=== PATIENT | female | born 1980 | race Two or more races ===

== ENCOUNTER 2024-09-12 10:47 | Outpatient (AMB) | payer MEDICAID, SELFPAY ==
[2024-09-12 11:18] VITALS: BP 108/70; PULSE 75; RESP 18; TEMP 36.2; O2SAT 99; BMI 34.9
--- NOTE | 2024-09-12 11:18 | OBCLNT_ITS ---
Vital Signs 09/12/24 11:18 Height 1.65 m Height Method Stated Weight 95.311 kg Weight Measurement Method Standing Scale BMI 34.9 BP 108/70 Blood Pressure Source Automatic Cuff Blood Pressure Location Left Upper Arm Position Sitting Respiration 18 Pulse 75 Pulse Source Monitor Temp 97.2 F Temp Source Oral Pulse Oximetry (%) 99 Oxygen Delivery Method Room Air Allergies/Home Meds Allergies & Medications Allergies No Known Allergies Allergy (Verified 09/12/24 11:20) Medication Reconciliation alprazolam 0.25 mg tablet (Xanax) 0.25 mg PO TID PRN anxiety #10 tabs 01/24/20 [Rx Confirmed 09/12/24] albuterol sulfate 90 mcg/actuation aerosol inhaler (Ventolin HFA) 2 puff inhalation Q6H PRN shortness of breath or wheezing #8.5 grams 01/26/22 [Rx Confirmed 09/12/24] Intake Visit Data Collection New Patient or Established: Established Patient (seen at [facility] within 3 years) Reason for Visit:: Transfer of care from [facility] at 31 weeks and 2 days estimated gestation Seen by Clinical Staff ONLY (RN/MA): No Director Child Development Center Required: No Do You Feel Safe at Home: Yes Authorities Contacted: N/A PCP or OBGYN visit in last 3 months: Yes Hx Now: Yes Are you currently on any form of Control: No Last menstrual period: 02/06/24 Pain Present Currently: No Pain Scale Used: Murray-Jett/Numerical Pain scale:: 0 Smoking Status Smoking Status: Never smoker Questionnaires Covid-19 Vaccine Questionnaire Has patient been vacinated for Covid-19 Have you been vacinated for Covid-19: No PHQ-9 PHQ-2 Over the last 2 weeks, how often have you been bothered by any of the following problems? 1. Little interest or pleasure in doing things: not at all 2. Feeling down, depressed, or hopeless: not at all Total score: 0 PHQ-9 3. Trouble falling or staying asleep, or sleeping too much: Not at all 4. Feeling tired or having little energy: Not at all 5. Poor appetite or overeating: Not at all 6. Feeling bad about yourself - or that you are a failure or have let yourself or your family down: Not at all 7. Trouble concentrating on things, such as reading the newspaper or watching television: Not at all 8. Moving or speaking so slowly that other people could have noticed? - Or the opposite - being so fidgety or restless that you have been moving around a lot more than usual: not at all 9. Thoughts that you would be better off or of hurting yourself in some way: Not at all Total score: 0 If you checked off any problems, how difficult have these problems made it for you to do your work, take care of things at home, or get along with other people?: not difficult at all Source: Developed by Drs. Zafar Faulkner, Mare Floyd, Santo Heck and colleagues, with an educational clark from [employer]. Depression screen completed yes Social History Living Situation History Marital Status: Lives With: Family Housing: House Tobacco History Smoking Status: Never smoker Second Hand Smoke Exposure: No Alcohol History Alcohol Intake: Never Domestic Abuse History Do You Feel Safe at Home: Yes Past Medical History Past Medical History Have you ever been diagnosed with any of the following: Cardiology Problems Congestive Heart Failure: No Respiratory Problems Chronic Obstructive Pulmonary Disease (COPD): No Genital/Urinary Problems Renal Disease: No Endocrine Problems Diabetes Mellitus Type 1: No Diabetes Mellitus Type 2: No Psychologic Problems Anxiety: Yes History of Present Illness HPI Narrative Radhika Gil, a 44-year-old female, presents for transfer of care from [facility] at 31 weeks and 2 days estimated gestation. Her last menstrual period was 02/06/2024, with an estimated due date of 11/12/2024, consistent with a first-trimester ultrasound at 13 weeks and 2 days. The patient's current has been complicated by suspected urinary tract infection and varicose veins of the lower extremity, for which she was treated with antibiotics on 08/21/2024. She reports no current contractions or other problems. The patient confirms that the baby is always active. She is currently taking vitamins as prescribed. Mrs. Gil has a history of twin and is scheduled for a section, though the date has not yet been confirmed. She expresses uncertainty about whether the doctor will operate on her and inquires about her platelet levels, suggesting possible concerns about her hematological status. Obstetric History - GTPAL: L2 (twin mentioned) - Current : - Gestational age: 31 weeks and 2 days - Estimated due date: November 12, 2024 - Last menstrual period: February 06, 2024 - confirmed by 1st trimester ultrasound at 13 weeks and 2 days Medical History - Varicose veins of lower extremity - Urinary tract infection (UTI) Surgical History - section (date not specified) Medications and Supplements - vitamins - Minoxidil - Ferrous sulfate - Clobetasol 0.05% scalp solution - Cetirizine - Azithromycin - Acetaminophen Immunizations - Rubella: Patient is immune Social History - Children: Has 9 and 11-year-old children Review of Systems Cardiovascular: Negative for contractions. Genitourinary: Positive for varicose veins of lower extremity. Other: Positive for movement. OB Ultrasound OB Ultrasound Ultrasound technique: transabdominal OB Initial Visit OB Flowsheet OB Flowsheet Initial Weight: Not Recorded Date -?-?-?-?-?-?-?-?-?-?-?-?- EGA Weight Edema CTX Effacement BP Fundal ht Pres Dilation Effacement Station Visit Note Alb Glu FHR Mov 09/12/24 -?-?-?-?-?-?-?-?-?-?-?-?- 31w 2d 95.311 kg 108/70 Génesis ent presents for visit, third trimester, transfer of care from Dr. Duke. Reports no contractions, leakage of fluid, visual changes, or bleeding, and reports adequate movements. Notable for prior section, curr ently scheduled for repeat (date pending). labs include: Blood group B positive Hemoglobin 10.4 g/dL Rubella immune RPR non-reactive Hepatitis B negative HIV negative Gonorrhea and Chlamydia negative 1-hour glucose: 155 mg/dL 3-hour glucose: Fastin mg/dL 1 hour: 181 mg/dL 2 hour: 138 mg/dL 3 hour: 122 mg/dL Hemoglobin A1c: 5.3% Cystic fibrosis screening: Negative NIPT: Negative heart rate auscultated at 147 bpm. dated by first trimester ultrasound at 13w2d is consistent with LMP (02/06/2024), giving an ANIL of 11/12/2024. Labor precautions reviewed. Return in 3 weeks. Educated the patient on labor si gns, including regular contractions, lower back pain, and changes in vaginal discharge. Advised avoiding heavy lifting and getting adequate rest. Instructed to contact the office immediately if any signs occur. Discussed the importance of a balanced diet rich in folic acid, iron, and calcium, and provided a list of recommended and to-avoid foods. Emphasized avoiding high-sugar foods to reduce gestational diabetes risk. Encouraged hydration and frequent, small meals for energy. 155 active Menstrual History Menstrual reliability: definite Flow: normal Menstrual regularity: regular On control pills at conception: No OB History : 4 Para: 4 Hx Total # of Abortions (Spontaneous & Elective): 0 # of Living Children: 4 Delivery History 1st : Child's name: MARK GIL date: 02/04/01 sex: male Delivery type: vaginal Delivery complications: NA History of depression before or after : No 2nd : Child's name: RISHABH/ SALMA GIL date: 10/19/05 sex: female Delivery type: Delivery complications: NO / TWINS PREGRANCY History of depression before or after : No 3rd : Child's name: EMILY GIL date: 01/07/14 sex: female Delivery type: Delivery complications: NO History of depression before or after : No Infection History & Risk Evaluation History of STDs: none HIV risk evaluation: low risk Hepatitis B risk evaluation: low risk Patient or partner has history of Genital Herpes: No Varicella/chicken pox status: immunized Genetic Screening & History Genetic Screening/Teratology Counseling - Includes patient, baby's father, or anyone in either family with: 1. Patient's age 35 years or older as of estimated date of delivery: Yes 2. Thalassemia (German, Tongan, Mediterranean, or Background); MCV less than 80: No 3. Neural Tube Defect (Meningomyelocele, Spina Bifida, or Anencephaly): No 4. Congenital Heart Defect: No 5. Down Syndrome: No 6. Chinedu-Sachs (Ashkenazi Hinduism, Cajun, Bel[place]ian [place]): No 7. Kain Disease (Ashkenazi Hinduism): No 8. Familial Dysautonomia (Ashkenazi Hinduism): No 9. Sickle Cell Disease or Trait (): No 10. Hemophilia or other blood disorders: No 11. Muscular Dystrophy: No 12. Cystic Fibrosis: No 13. Sangamon's Chorea: No 14. Mental Retardation/Autism: No 15. Other inherited genetic or chromosomal disorder: No 16. Maternal Metabolic Disorder (EG,TYPE 1 Diabetes, PKU): No 17. Patient or baby's father had a child with defects not listed above: No 18. Recurrent loss or a stillbirth: No 19. Medications (including supplements, vitamins, herbs or otc drugs)/illicit/recreational drugs/alcohol since last menstrual period: No 20. Any other: No Infection History 1. Live with someone with TB or exposed to TB: No 2. Rash or viral illness since last menstrual period: No 3. Hepatitis B,C: No Other (see comments) Source: [employer] Exam General Limitations: no limitations General Appearance: alert, in no apparent distress, comfortable, cooperative, healthy appearing, well developed and well groomed Head Head exam: atraumatic, normocephalic and normal inspection Chest Chest inspection: Present normal inspection and symmetric chest wall rise Abdominal Abdominal exam: Present soft and normal bowel sounds Psych Psychiatric exam: Present normal affect and normal mood Skin Skin exam: Present warm, dry, intact and normal color Results Objective Laboratory: Laboratory, Imaging, and Diagnostic Test Results - Date: 04/18/2024 - Blood group: B positive - Hemoglobin: 10.4 g/dL - Rubella: Immune - RPR: Non-reactive - Hepatitis B: Negative - HIV: Negative - Gonorrhea: Negative - Chlamydia: Negative - 1-hour glucose: 155 mg/dL - 3-hour glucose tolerance test: - Fastin mg/dL - 1 hour: 181 mg/dL - 2 hours: 138 mg/dL - 3 hours: 122 mg/dL - Hemoglobin A1c: 5.3% - Cystic fibrosis screening: Negative - NIPT (Non-Invasive Testing): Negative - Ultrasound (date not specified): - Gestational age: 13 weeks and 2 days (1st trimester) Assessment & Plan Diagnosis / Problem List (1) Advanced maternal age (AMA), 40 years or greater: Status: Acute (2) Supervision of high risk , unspecified, third trimester: Status: Acute (3) Maternal care for unspecified type scar from previous delivery: Status: Acute (4) Varicose veins of lower extremity: Status: Acute Plan Radhika Gil is a 44-year-old at 31 weeks and 2 days gestation presenting for transfer of care from [facility], with a history of twin and estimated due date of November 12, 2024. , 31 weeks and 2 days gestation Assessment: Patient is at 31 weeks and 2 days estimated gestation based on last menstrual period of 02/06/2024 and confirmed by first-trimester ultrasound at 13 weeks and 2 days. appears to be progressing normally with heart rate of 147 bpm noted during this visit. Initial labs from 04/18/2024 showed blood group B positive, hemoglobin of 10.4, rubella immune, RPR non- reactive, hepatitis B negative, HIV negative, and gonorrhea and chlamydia negative. One-hour glucose was 155, but follow-up 3-hour glucose tolerance test was negative. Hemoglobin A1c was 5.3. Cystic fibrosis and NIPT testing were negative. Plan: - Obtain all ultrasounds and records from previous provider (Dr. Rayo's office) - Order laboratory tests (specifics not mentioned in transcript) - Schedule follow-up visit in 3 weeks - Plan to book at next visit after reviewing additional paperwork Anemia Assessment: Patient's initial hemoglobin was 10.4 on 04/18/2024, indicating mild anemia. Current medication list includes ferrous sulfate, suggesting ongoing treatment for anemia. Plan: - Continue ferrous sulfate (dose not specified) - Reassess hemoglobin levels with ordered laboratory tests History of Urinary Tract Infection (UTI) Assessment: Patient had a suspected UTI noted in the last office visit on 08/21/2024. She was treated with antibiotics per the physician's notes. Current medication list includes azithromycin, which may be related to this recent infection. Plan: - Monitor for recurrence of UTI symptoms - Continue azithromycin as prescribed (dose and duration not specified) Varicose veins of lower extremity Assessment: Patient was noted to have varicose veins of the lower extremity in the last office visit on 08/21/2024. No specific treatment was mentioned in the available records. Plan: - Reassess varicose veins at follow-up visits Office Procedures OB Clinic LOC & Office Proc's Nursing/Assessment Patient Status: Established Patient OB Clinic Nursing Assessment: BP Monitoring, Medication Reconciliation, Update PMH in EMR and Vital Signs OB Clinic Coordination of Care: Consent,records obtained, informed consent, Education Simp Pt/Fam, Lab and Imaging orders and Staff clarify orders Special Needs: Heart tones Established Patient Charge Established Patient Point Assignment: 120 Established Patient Point Charge: EP Level 4 (120-155) Bedside Ultrasounds US Transabdominal <14 weeks at bedside: Yes
== END 2024-09-12 11:53 | disposition home or self-care (01) ==
LOC: HODSOBC 10:47
PROVIDERS: PCP Physician Assistant; Referring Provider Physician Assistant; Supervising Provider Obstetrics & Gynecology; Visit Provider Obstetrics & Gynecology
DX: O09.523 Supervision of elderly multigravida, third trimester (principal); Z3A.31 31 weeks gestation of pregnancy; O09.293 Supervision of pregnancy with other poor reproductive or obstetric history, third trimester; O34.219 Maternal care for unspecified type scar from previous cesarean delivery; O09.893 Supervision of other high risk pregnancies, third trimester; O99.891 Other specified diseases and conditions complicating pregnancy; I83.90 Asymptomatic varicose veins of unspecified lower extremity; O99.012 Anemia complicating pregnancy, second trimester; Z87.440 Personal history of urinary (tract) infections
CPT/HCPCS: 76801; 99214; G0463

== ENCOUNTER 2024-10-10 13:32 | Outpatient (AMB) | payer MEDICAID, SELFPAY ==
[2024-10-10 14:07] VITALS: BP 118/79; PULSE 78; RESP 16; TEMP 36.4; O2SAT 98; BMI 36.1
--- NOTE | 2024-10-10 14:07 | OBCLNT_ITS ---
Vital Signs 10/10/24 14:07 Height 1.65 m Height Method Stated Weight 98.543 kg Weight Measurement Method Standing Scale BMI 36.1 BP 118/79 Blood Pressure Source Automatic Cuff Blood Pressure Location Right Upper Arm Position Sitting Respiration 16 Pulse 78 Pulse Source Monitor Temp 97.5 F Temp Source Oral Pulse Oximetry (%) 98 Oxygen Delivery Method Room Air Allergies/Home Meds Allergies & Medications Allergies No Known Allergies Allergy (Verified 10/10/24 14:08) Medication Reconciliation No Known Home Medications 10/10/24 [History Confirmed 10/10/24] Intake Visit Data Collection New Patient or Established: Established Patient (seen at [facility] within 3 years) Reason for Visit:: care Seen by Clinical Staff ONLY (RN/MA): No [employer] Required: Yes 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 1. Little interest or pleasure in doing things: not at all 2. Feeling down, depressed, or hopeless: not at all Total score: 0 PHQ-9 3. Trouble falling or staying asleep, or sleeping too much: Not at all 4. Feeling tired or having little energy: Not at all 5. Poor appetite or overeating: Not at all 6. Feeling bad about yourself - or that you are a failure or have let yourself or your family down: Not at all 7. Trouble concentrating on things, such as reading the newspaper or watching television: Not at all 8. Moving or speaking so slowly that other people could have noticed? - Or the opposite - being so fidgety or restless that you have been moving around a lot more than usual: not at all 9. Thoughts that you would be better off or of hurting yourself in some way: Not at all Total score: 0 Source: Developed by Drs. Zafar Faulkner, Mare Floyd, Santo Heck and colleagues, with an educational clark from [employer]. 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 - Patient was recently transferred from [facility] where she was under the care of Dr. Duke. - Estimated due date is 11-12-2024, based on a 13-week and 2-day ultrasound. - Obstetrical history significant for one vaginal delivery followed by two sections. - Scheduled for repeat on November 09, 2024, at 12:30 PM. - Patient reports movement. - Denies any problems or concerns. No contractions/ LOF/VB, reports good FM No ALEGRIA/VC/RUQ/Epig pain Care OB Visit Log OB Flowsheet Initial Weight: Not Recorded Date -?-?-?-?-?-?-?-?-?-?-?-?- EGA Weight BP Alb Glu CTX Pres Fundal ht FHR Mov Dilation Station Effacement Hx Notes Visit Note 09/12/24 -?-?-?-?-?-?-?-?-?-?-?-?- 31w 2d 95.311 kg 108/70 155 active Patient presents for visit, third trimester, transfer of care from Dr. Duke. Reports no contractions, leakage of fluid, visual changes, or bleeding, and reports adequate movements. Notable for prior section, curr ently scheduled for repeat (date pending). labs include: Blood group B positive Hemoglobin 10.4 g/dL Rubella immune RPR non-reactive Hepatitis B negative HIV negative Gonorrhea and Chlamydia negative 1-hour glucose: 155 mg/dL 3-hour glucose: Fastin mg/dL 1 hour: 181 mg/dL 2 hour: 138 mg/dL 3 hour: 122 mg/dL Hemoglobin A1c: 5.3% Cystic fibrosis screening: Negative NIPT: Negative heart rate auscultated at 147 bpm. dated by first trimester ultrasound at 13w2d is consistent with LMP (02/06/2024), giving an ANIL of 11/12/2024. Labor precautions reviewed. Return in 3 weeks. Educated the patient on labor si gns, including regular contractions, lower back pain, and changes in vaginal discharge. Advised avoiding heavy lifting and getting adequate rest. Instructed to contact the office immediately if any signs occur. Discussed the importance of a balanced diet rich in folic acid, iron, and calcium, and provided a list of recommended and to-avoid foods. Emphasized avoiding high-sugar foods to reduce gestational diabetes risk. Encouraged hydration and frequent, small meals for energy. 10/10/24 -?-?-?-?-?-?-?-?-?-?-?-?- 35w 2d 98.543 kg 118/79 145 active at 35 weeks and 2 days gestation, presents for routine care. Reports good FM+, no complaints. History of 1 vaginal delivery followed by 2 C-sections. ANIL 11/12/2024 (based on 13w2d US). Transferred from Dr. Duke at [facility]. Repeat sche duled for 11/09/2024 at 12:30 PM. Plan: Arrive at 10:00 AM on day of surgery 36-week visit to include culture swab Weekly visits moving forward precautions reviewed ANIL Calculator Estimated Delivery Date Method Current WG Current Estimate 11/12/24 LMP (Certain) 35w 5d Exam General General Appearance: alert, in no apparent distress and healthy appearing Head Head exam: atraumatic Neck Neck exam: Present normal inspection and trachea midline Chest Chest inspection: Present normal inspection and symmetric chest wall rise External exam: Present normal external exam; Absent tenderness Neuro Neurological exam: Present oriented X3 Psych Psychiatric exam: Present normal affect and normal mood Office Procedures OB Clinic LOC & Office Proc's Nursing/Assessment Patient Status: Established Patient OB Clinic Nursing Assessment: Medication Reconciliation, Update PMH in EMR and Vital Signs OB Clinic Coordination of Care: AMA, Complex Care and Chronic Disease 1-5, Consent,records obtained, informed consent, Education Simp Pt/Fam, Lab and Imaging orders, Results/Orders obtained and Transfer [facility] Special Needs: Heart tones Established Patient Charge Established Patient Point Assignment: 155 Established Patient Point Charge: EP Level 4 (120-155) Assessment & Plan Diagnosis / Problem List (1) Advanced maternal age (AMA), 40 years or greater: Status: Acute (2) Varicose veins of lower extremity: Status: Acute (3) Supervision of high risk , unspecified, third trimester: Status: Acute (4) Maternal care for unspecified type scar from previous delivery: Status: Acute Plan Problem List - , 35 weeks and 2 days gestation - History of delivery Assessment - at 35 weeks and 2 days gestation - History of one vaginal delivery followed by 2 sections - Scheduled for repeat section on November 09, 2024 at 12:30 PM - Estimated due date of November 12, 2024 based on 13-week and 2-day ultrasound - Transfer of care from previous provider (Dr. Duke at [facility]) Plan - Repeat scheduled for November 09, 2024 at 12:30 PM - Patient to arrive at 10:00 AM on the day of surgery - Next appointment will include a culture scan (routine at 36 weeks) - Weekly appointments moving forward Educated the patient on labor signs, including regular contractions, lower back pain, and changes in vaginal discharge. Advised avoiding heavy lifting and getting adequate rest. Instructed to contact the office immediately if any signs occur. Discussed the importance of a balanced diet rich in folic acid, iron, and calcium, and provided a list of recommended and to-avoid foods. Emphasized avoiding high-sugar foods to reduce gestational diabetes risk. Encouraged hydration and frequent, small meals for energy..
== END 2024-10-10 14:17 | disposition home or self-care (01) ==
LOC: HODSOBC 13:32
PROVIDERS: PCP Physician Assistant; Referring Provider Physician Assistant; Supervising Provider Obstetrics & Gynecology; Visit Provider Obstetrics & Gynecology
DX: O09.523 Supervision of elderly multigravida, third trimester (principal); Z3A.35 35 weeks gestation of pregnancy; O09.893 Supervision of other high risk pregnancies, third trimester; O22.03 Varicose veins of lower extremity in pregnancy, third trimester; I83.90 Asymptomatic varicose veins of unspecified lower extremity; O09.293 Supervision of pregnancy with other poor reproductive or obstetric history, third trimester; O34.219 Maternal care for unspecified type scar from previous cesarean delivery
CPT/HCPCS: 99214; G0463

== ENCOUNTER 2024-10-17 15:31 | Outpatient (AMB) | payer MEDICAID, SELFPAY ==
[2024-10-17 15:35] VITALS: BP 108/70; PULSE 75; RESP 18; TEMP 36.2; O2SAT 98; BMI 36.4
--- NOTE | 2024-10-17 15:35 | AMB.OBVISIT ---
Vital Signs 10/17/24 15:35 Height 1.65 m Height Method Stated Weight 99.337 kg Weight Measurement Method Standing Scale BMI 36.4 BP 108/70 Blood Pressure Source Automatic Cuff Blood Pressure Location Left Upper Arm Position Sitting Respiration 18 Pulse 75 Pulse Source Monitor Temp 97.2 F Temp Source Oral Pulse Oximetry (%) 98 Oxygen Delivery Method Room Air Allergies/Home Meds Allergies & Medications Allergies No Known Allergies Allergy (Verified 10/17/24 15:36) Medication Reconciliation No Known Home Medications 10/10/24 [History Confirmed 10/17/24] Intake Visit Data Collection New Patient or Established: Established Patient (seen at [facility] within 3 years) Reason for Visit:: OBC Seen by Clinical Staff ONLY (RN/MA): No Bank Consultant Required: No Do You Feel Safe at Home: Yes Authorities Contacted: N/A PCP or OBGYN visit in last 3 months: Yes Date of Last PCP or OBGYN visit: 10/10/24 Hx Now: Yes Are you currently on any form of Control: No Pain Present Currently: No Pain Scale Used: Murray-Jett/Numerical Pain scale:: 0 Smoking Status Smoking Status: Never smoker Questionnaires Covid-19 Vaccine Questionnaire Has patient been vacinated for Covid-19 Have you been vacinated for Covid-19: Yes PHQ-9 PHQ-2 Over the last 2 weeks, how often have you been bothered by any of the following problems? 1. Little interest or pleasure in doing things: not at all 2. Feeling down, depressed, or hopeless: not at all Total score: 0 PHQ-9 3. Trouble falling or staying asleep, or sleeping too much: Not at all 4. Feeling tired or having little energy: Not at all 5. Poor appetite or overeating: Not at all 6. Feeling bad about yourself - or that you are a failure or have let yourself or your family down: Not at all 7. Trouble concentrating on things, such as reading the newspaper or watching television: Not at all 8. Moving or speaking so slowly that other people could have noticed? - Or the opposite - being so fidgety or restless that you have been moving around a lot more than usual: not at all 9. Thoughts that you would be better off or of hurting yourself in some way: Not at all Total score: 0 If you checked off any problems, how difficult have these problems made it for you to do your work, take care of things at home, or get along with other people?: not difficult at all Source: Developed by Drs. Zafar Faulkner, Mare Floyd, Santo Heck and colleagues, with an educational clark from [employer]. 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 Patient has a history of 2 prior deliveries. Patient reports Just a little bit of pain sometimes that comes and goes. No contractions, LOF, VB and reports good FM. Denies ALEGRIA, VC, and epigastric pain. History of Present Illness - Radhika Okeefe is a 44-year-old at 36 weeks and 2 days gestation presenting for care. - History of 2 previous sections. - Scheduled for repeat on November 09, 2024. - Reports experiencing intermittent pain: - Described as a little bit of pain sometimes - Comes and goes - Not persistent for long periods - Denies experiencing contractions Care OB Visit Log OB Flowsheet Initial Weight: Not Recorded Date <del>?</del> EGA Weight BP Alb Glu CTX Pres Fundal ht FHR Mov Dilation Station Effacement Hx Notes Visit Note 09/12/24 <del>?</del> 31w 2d 95.311 kg 108/70 155 active Patient presents for visit, third trimester, transfer of care from Dr. Duke. Reports no contractions, leakage of fluid, visual changes, or bleeding, and reports adequate movements. Notable for prior section, currently scheduled for repeat (date pending). labs include: Blood group B positive Hemoglobin 10.4 g/dL Rubella immune RPR non-reactive Hepatitis B negative HIV negative Gonorrhea and Chlamydia negative 1-hour glucose: 155 mg/dL 3-hour glucose: Fastin mg/dL 1 hour: 181 mg/dL 2 hour: 138 mg/dL 3 hour: 122 mg/dL Hemoglobin A1c: 5.3% Cystic fibrosis screening: Negative NIPT: Negative heart rate auscultated at 147 bpm. dated by first trimester ultrasound at 13w2d is consistent with LMP (02/06/2024), giving an NAIL of 11/12/2024. Labor precautions reviewed. Return in 3 weeks. Educated the patient on labor signs, including regular contractions, lower back pain, and changes in vaginal discharge. Advised avoiding heavy lifting and getting adequate rest. Instructed to contact the office immediately if any signs occur. Discussed the importance of a balanced diet rich in folic acid, iron, and calcium, and provided a list of recommended and to-avoid foods. Emphasized avoiding high-sugar foods to reduce gestational diabetes risk. Encouraged hydration and frequent, small meals for energy. 10/10/24 <del>?</del> 35w 2d 98.543 kg 118/79 145 active at 35 weeks and 2 days gestation, presents for routine care. Reports good FM+, no complaints. History of 1 vaginal delivery followed by 2 C-sections. ANIL 11/12/2024 (based on 13w2d US). Transferred from Dr. uDke at [facility]. Repeat scheduled for 11/09/2024 at 12:30 PM. Plan: Arrive at 10:00 AM on day of surgery 36-week visit to include culture swab Weekly visits moving forward precautions reviewed 10/17/24 <del>?</del> 36w 2d 99.337 kg 108/70 at 36 weeks and 2 days gestation, presents for routine care. History of 2 prior C-sections, scheduled for repeat on 11/09/2024. Reports intermittent mild abdominal pain, no CTX/LOF/VB, good FM+. Denies ALEGRIA/VC/epig pain. FHT 155 bpm. Consent signed for BTL; patient to obtain copy from Dr. Duke' office. Plan: Bring signed BTL consent form to next visit Repeat scheduled for 11/09/2024 Weekly follow-up visits Call L&D if contractions persist >1 hour Routine and preeclampsia precautions reviewed ANIL Calculator Estimated Delivery Date Method Current WG Current Estimate 11/12/24 LMP (Certain) 36w 5d Exam General General Appearance: alert, in no apparent distress and healthy appearing Head Head exam: atraumatic Neck Neck exam: Present normal inspection and trachea midline Chest Chest inspection: Present normal inspection and symmetric chest wall rise External exam: Present normal external exam; Absent tenderness Neuro Neurological exam: Present oriented X3 Psych Psychiatric exam: Present normal affect and normal mood Office Procedures OB Clinic LOC & Office Proc's Nursing/Assessment Patient Status: Established Patient OB Clinic Nursing Assessment: Medication Reconciliation, Update PMH in EMR and Vital Signs OB Clinic Coordination of Care: Complex Care and Chronic Disease 1-5, Education Complex Pt/Fam, Consent,records obtained, informed consent, Lab and Imaging orders and Staff clarify orders Special Needs: Heart tones Established Patient Charge Established Patient Point Assignment: 135 Established Patient Point Charge: EP Level 4 (120-155) Assessment & Plan Diagnosis / Problem List (1) Advanced maternal age (AMA), 40 years or greater: Status: Acute (2) Varicose veins of lower extremity: Status: Acute (3) Maternal care for unspecified type scar from previous delivery: Status: Acute (4) Supervision of high risk , unspecified, third trimester: Status: Acute Plan Problem List - , 36 weeks and 2 days gestation - History of section (2 previous) - Intermittent abdominal pain Assessment at 36 weeks and 2 days gestation presenting for routine care. Patient reports intermittent pain, described as come and go, which does not persist for extended periods. History of 2 previous sections, with repeat section scheduled for 11/09/2024. Patient has signed consent for tubal ligation to be performed during the upcoming section. Plan - Scheduled for repeat section on 11/09/2024 - Patient to obtain copy of signed tubal ligation consent form from Dr. Duke' office - Patient to bring tubal ligation consent form to next appointment - Follow-up appointment scheduled in one week - Patient instructed to come to hospital if contractions persist for more than one hour Progress Reviewed gestational age, growth, and heart rate. Planned frequent visits (every 2 weeks until 36 weeks, then weekly). Instructed patient to monitor movements and report decreases immediately. Testing Counseled on routine third-trimester labs per guidelines. Discussed potential need for ultrasound or monitoring based on risk factors. Preeclampsia Precautions Educated on preeclampsia signs: severe headache, vision changes, right upper quadrant pain, sudden swelling. Advised urgent reporting of symptoms and discussed blood pressure monitoring if high risk. Labor Precautions Reviewed labor signs: regular contractions, pelvic pressure, back pain, bleeding, or fluid leakage. Instructed to seek immediate care for these symptoms. Lifestyle and Delivery Preparation Reinforced vitamins, nutrition, and safe activity. Discussed plan, pain management, and . Advised on labor preparation (e.g., hospital bag) and expectations. Psychosocial Support Assessed emotional well-being and offered resources for mental health or parenting support.
== END 2024-10-17 16:00 | disposition home or self-care (01) ==
LOC: HODSOBC 15:31
PROVIDERS: PCP Physician Assistant; Referring Provider Physician Assistant; Supervising Provider Obstetrics & Gynecology; Visit Provider Obstetrics & Gynecology
DX: O09.523 Supervision of elderly multigravida, third trimester (principal); Z3A.36 36 weeks gestation of pregnancy; O09.293 Supervision of pregnancy with other poor reproductive or obstetric history, third trimester; O34.219 Maternal care for unspecified type scar from previous cesarean delivery; O09.893 Supervision of other high risk pregnancies, third trimester; O22.03 Varicose veins of lower extremity in pregnancy, third trimester; I83.90 Asymptomatic varicose veins of unspecified lower extremity
CPT/HCPCS: 99214; G0463

== ENCOUNTER → 2024-10-26 13:03 | Outpatient (AMB) | payer MEDICAID, SELFPAY ==
[2024-10-26 13:18] VITALS: BP 112/73; PULSE 67; RESP 17; TEMP 36.4; O2SAT 98; BMI 36.6
--- NOTE | 2024-10-26 13:18 | AMB.OBVISIT ---
Vital Signs 10/26/24 13:18 Height 1.65 m Height Method Stated Weight 99.79 kg Weight Measurement Method Standing Scale BMI 36.6 BP 112/73 Blood Pressure Source Automatic Cuff Blood Pressure Location Right Upper Arm Position Sitting Respiration 17 Pulse 67 Pulse Source Monitor Temp 97.5 F Temp Source Temporal Artery Scan Pulse Oximetry (%) 98 Oxygen Delivery Method Room Air Allergies/Home Meds Allergies & Medications Allergies No Known Allergies Allergy (Verified 10/26/24 13:22) Medication Reconciliation No Known Home Medications 10/10/24 [History Confirmed 10/26/24] Intake Visit Data Collection New Patient or Established: Established Patient (seen at [facility] within 3 years) Reason for Visit:: OBC / GBS Linoleum Floor Layer Required: Yes Linoleum Floor Layer's name/title: LIZBETPUALA TOM Do You Feel Safe at Home: Yes Authorities Contacted: N/A PCP or OBGYN visit in last 3 months: Yes Date of Last PCP or OBGYN visit: 10/17/24 Hx Now: Yes Are you currently on any form of Control: No Pain Present Currently: Yes Pain Location: Back Smoking Status Smoking Status: Never smoker Questionnaires Covid-19 Vaccine Questionnaire Has patient been vacinated for Covid-19 Have you been vacinated for Covid-19: No PHQ-9 PHQ-2 Over the last 2 weeks, how often have you been bothered by any of the following problems? 1. Little interest or pleasure in doing things: not at all 2. Feeling down, depressed, or hopeless: not at all Total score: 0 PHQ-9 3. Trouble falling or staying asleep, or sleeping too much: Not at all 4. Feeling tired or having little energy: Not at all 5. Poor appetite or overeating: Not at all 6. Feeling bad about yourself - or that you are a failure or have let yourself or your family down: Not at all 7. Trouble concentrating on things, such as reading the newspaper or watching television: Not at all 8. Moving or speaking so slowly that other people could have noticed? - Or the opposite - being so fidgety or restless that you have been moving around a lot more than usual: not at all 9. Thoughts that you would be better off or of hurting yourself in some way: Not at all Total score: 0 Source: Developed by Drs. Zafar Faulkner, Mare Floyd, Santo Heck and colleagues, with an educational clark from [employer]. Depression screen completed yes Social History Living Situation History Lives With: Family Housing: House Tobacco History Smoking Status: Never smoker Second Hand Smoke Exposure: No Alcohol History Alcohol Intake: Never Domestic Abuse History Do You Feel Safe at Home: Yes [employer]: Past Medical History Past Medical History: No Hx Renal Disease, No Hx Diabetes Mellitus Type 1 and No Hx Diabetes Mellitus Type 2 History of Present Illness HPI Narrative Radhika Okeefe, , presents for routine visit at 37 weeks and 4 days gestation. Patient has a history of 2 prior deliveries. No contractions, LOF, VB and reports good FM. Denies ALEGRIA, VC, and epigastric pain. - Radhika Okeefe is a 44-year-old 5 para 4 at 37 weeks and 4 days gestation presenting for a routine visit. - Patient has a history of 2 previous C-sections. - She is scheduled for a repeat on November 09, 2024, at 12:30 PM. - Patient is instructed to arrive at the hospital at 10:00 AM on the day of the procedure. - Patient denies any contractions or problems. - She reports feeling a pounding in the back, which was explained as normal due to pressure from the uterus on blood vessels. - Patient is scheduled for a bilateral tubal ligation along with the . - Consent for the tubal ligation has been obtained and is on file. Care OB Visit Log OB Flowsheet Initial Weight: Not Recorded Date <del>?</del> EGA Weight BP Alb Glu CTX Pres Fundal ht FHR Mov Dilation Station Effacement Hx Notes Visit Note 09/12/24 <del>?</del> 31w 2d 95.311 kg 108/70 155 active Patient presents for visit, third trimester, transfer of care from Dr. Duke. Reports no contractions, leakage of fluid, visual changes, or bleeding, and reports adequate movements. Notable for prior section, currently scheduled for repeat (date pending). labs include: Blood group B positive Hemoglobin 10.4 g/dL Rubella immune RPR non-reactive Hepatitis B negative HIV negative Gonorrhea and Chlamydia negative 1-hour glucose: 155 mg/dL 3-hour glucose: Fastin mg/dL 1 hour: 181 mg/dL 2 hour: 138 mg/dL 3 hour: 122 mg/dL Hemoglobin A1c: 5.3% Cystic fibrosis screening: Negative NIPT: Negative heart rate auscultated at 147 bpm. dated by first trimester ultrasound at 13w2d is consistent with LMP (02/06/2024), giving an ANIL of 11/12/2024. Labor precautions reviewed. Return in 3 weeks. Educated the patient on labor signs, including regular contractions, lower back pain, and changes in vaginal discharge. Advised avoiding heavy lifting and getting adequate rest. Instructed to contact the office immediately if any signs occur. Discussed the importance of a balanced diet rich in folic acid, iron, and calcium, and provided a list of recommended and to-avoid foods. Emphasized avoiding high-sugar foods to reduce gestational diabetes risk. Encouraged hydration and frequent, small meals for energy. 10/10/24 <del>?</del> 35w 2d 98.543 kg 118/79 145 active at 35 weeks and 2 days gestation, presents for routine care. Reports good FM+, no complaints. History of 1 vaginal delivery followed by 2 C-sections. ANIL 11/12/2024 (based on 13w2d US). Transferred from Dr. Duke at [facility]. Repeat scheduled for 11/09/2024 at 12:30 PM. Plan: Arrive at 10:00 AM on day of surgery 36-week visit to include culture swab Weekly visits moving forward precautions reviewed 10/17/24 <del>?</del> 36w 2d 99.337 kg 108/70 at 36 weeks and 2 days gestation, presents for routine care. History of 2 prior C-sections, scheduled for repeat on 11/09/2024. Reports intermittent mild abdominal pain, no CTX/LOF/VB, good FM+. Denies ALEGRIA/VC/epig pain. FHT 155 bpm. Consent signed for BTL; patient to obtain copy from Dr. Duke' office. Plan: Bring signed BTL consent form to next visit Repeat scheduled for 11/09/2024 Weekly follow-up visits Call L&D if contractions persist >1 hour Routine and preeclampsia precautions reviewed 10/26/24 <del>?</del> 37w 4d 99.79 kg 112/73 44yo @37w4d, prior 2 C/S, scheduled repeat C/S 11/09 with BTL, no CTX/LOF/VB, FM+, reports back pressure, FHT 145 bpm. Plan: proceed with C/S 11/09, f/u next week, monitor for labor signs. ANIL Calculator Estimated Delivery Date Method Current WG Current Estimate 11/12/24 LMP (Certain) 37w 6d Exam General General Appearance: alert, in no apparent distress and healthy appearing Head Head exam: atraumatic Neck Neck exam: Present normal inspection and trachea midline Chest Chest inspection: Present normal inspection and symmetric chest wall rise External exam: Present normal external exam; Absent tenderness Neuro Neurological exam: Present oriented X3 Psych Psychiatric exam: Present normal affect and normal mood Office Procedures OB Clinic LOC & Office Proc's Nursing/Assessment Patient Status: Established Patient OB Clinic Nursing Assessment: Medication Reconciliation, Update PMH in EMR and Vital Signs OB Clinic Coordination of Care: Complex Care and Chronic Disease 1-5, Consent,records obtained, informed consent, Education Simp Pt/Fam, Lab and Imaging orders and Staff clarify orders Special Needs: Heart tones Established Patient Charge Established Patient Point Assignment: 130 Established Patient Point Charge: EP Level 4 (120-155) Assessment & Plan Diagnosis / Problem List (1) Varicose veins of lower extremity: Status: Acute (2) Advanced maternal age (AMA), 40 years or greater: Status: Acute (3) Supervision of high risk , unspecified, third trimester: Status: Acute (4) Maternal care for unspecified type scar from previous delivery: Status: Acute Plan Problem List - , 37 weeks and 4 days - History of section Assessment 44-year-old female at 37 weeks and 4 days gestation presenting for routine visit. Patient has a history of 2 previous C-sections and is scheduled for a repeat on November 09, 2024, at 12:30 PM. Patient reports no contractions or other problems. heart rate is 145 bpm, which is within normal range. Patient is experiencing pounding sensation in the back, attributed to uterine pressure on blood vessels. Consent for bilateral tubal ligation has been obtained and is on file. Plan - Scheduled for repeat on November 09, 2024 at 12:30 PM - Patient to arrive at the hospital at 10:00 AM on the day of - Follow-up appointment scheduled for next week (last appointment before ) - Bilateral tubal ligation consent form confirmed to be on file - Patient instructed to go to the hospital if experiencing any contractions or problems before scheduled 1. Progress Reviewed gestational age, growth, and heart rate. Planned frequent visits (every 2 weeks until 36 weeks, then weekly). 2. Instructed patient to monitor movements and report decreases immediately. 3. Testing Counseled on routine third-trimester labs per guidelines. Discussed potential need for ultrasound or monitoring based on risk factors. 4. Preeclampsia Precaution Educated on preeclampsia signs: severe headache, vision changes, right upper quadrant pain, sudden swelling. Advised urgent reporting of symptoms and discussed blood pressure monitoring if high risk. 5. Labor Precautions Reviewed labor signs: regular contractions, pelvic pressure, back pain, bleeding, or fluid leakage. Instructed to seek immediate care for these symptoms. 6. Lifestyle and Delivery Preparation Reinforced vitamins, nutrition, and safe activity. Discussed plan, pain management, and . Advised on labor preparation (e.g., hospital bag) and expectations. 7. Psychosocial Support Assessed emotional well-being and offered resources for mental health or parenting support.
== END ==
PROVIDERS: Supervising Provider Obstetrics & Gynecology; Visit Provider Obstetrics & Gynecology
DX: I10 Essential (primary) hypertension (principal)
CPT/HCPCS: 99214; G0463

== ENCOUNTER 2024-11-02 13:22 | Outpatient (AMB) | payer MEDICAID, SELFPAY ==
--- NOTE | 2024-11-02 13:42 | OBCLNT_ITS ---
Vital Signs 11/02/24 13:43 Height 1.65 m Height Method Stated Weight 100.924 kg Weight Measurement Method Standing Scale BMI 37.0 BP 127/78 Blood Pressure Source Automatic Cuff Blood Pressure Location Left Upper Arm Position Sitting Respiration 18 Pulse 79 Pulse Source Monitor Temp 97.2 F Temp Source Oral Pulse Oximetry (%) 99 Oxygen Delivery Method Room Air Allergies/Home Meds Allergies & Medications Allergies No Known Allergies Allergy (Verified 11/02/24 13:52) Medication Reconciliation No Known Home Medications 10/10/24 [History Confirmed 10/26/24] Intake Visit Data Collection New Patient or Established: Established Patient (seen at [facility] within 3 years) Reason for Visit:: OBC WEEKLY Seen by Clinical Staff ONLY (RN/MA): No Marble [employer] 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 1. Little interest or pleasure in doing things: not at all 2. Feeling down, depressed, or hopeless: not at all Total score: 0 PHQ-9 5. Poor appetite or overeating: Not at all 6. Feeling bad about yourself - or that you are a failure or have let yourself or your family down: Not at all 7. Trouble concentrating on things, such as reading the newspaper or watching television: Not at all 8. Moving or speaking so slowly that other people could have noticed? - Or the opposite - being so fidgety or restless that you have been moving around a lot more than usual: not at all 9. Thoughts that you would be better off or of hurting yourself in some way: Not at all If you checked off any problems, how difficult have these problems made it for you to do your work, take care of things at home, or get along with other people?: not difficult at all Source: Developed by Drs. Zafar Faulkner, Mare Floyd, Santo Heck and colleagues, with an educational clark from [employer]. 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 History of 2 C-sections. Denies ALEGRIA, VC, and epigastric pain. - Radhika Okeefe is a 44-year-old 5 para 4 at 38 weeks and 4 days gestation presenting for a visit. - History of 2 previous C-sections. - Repeat scheduled for 11/09/2024. - This is her last office visit before the scheduled . - Patient reports no new complaints or concerns. Care OB Visit Log OB Flowsheet Initial Weight: Not Recorded Date -?-?-?-?-?-?-?-?-?-?-?-?- EGA Weight BP Alb Glu CTX Pres Fundal ht FHR Mov Dilation Station Effacement Hx Notes Visit Note 09/12/24 -?-?-?-?-?-?-?-?-?-?-?-?- 31w 2d 95.311 kg 108/70 155 active Patient presents for visit, third trimester, transfer of care from Dr. Duke. Reports no contractions, leakage of fluid, visual changes, or bleeding, and reports adequate m ovements. Notable for prior section, curr ently scheduled for repeat (date pending). labs include: Blood group B positive Hemoglobin 10.4 g/dL Rubella immune RPR non-reactive Hepatitis B negative HIV negative Gonorrhea and Chlamydia negative 1-hour glucose: 155 mg/dL 3-hour glucose: Fastin mg/dL 1 hour: 181 mg/dL 2 hour: 138 mg/dL 3 hour: 122 mg/dL Hemoglobin A1c: 5.3% Cystic fibrosis screening: Negative NIPT: Negative heart rate auscultated at 147 bpm. dated by first trimester ultrasound at 13w2d is consistent with LMP (02/06/2024), giving an ANIL of 11/12/2024. Labor precautions reviewed. Return in 3 weeks. Educated the patient on labor si gns, including regular contractions, l ower back pain, and changes in vaginal discharge. Advised avoiding heavy lifting and getting adequate rest. Instructed to contact the office immediately if any signs occur. Discussed the importance of a balanced diet rich in folic acid, iron, and calcium, and provided a list of recommended and to-avoid foods. Emphasized avoiding high-sugar foods to reduce gestational diabetes risk. Encouraged hydration and frequent, small meals for energy. 10/10/24 -?-?-?-?-?-?-?-?-?-?-?-?- 35w 2d 98.543 kg 118/79 145 active at 35 weeks and 2 days gestation, presents for routine care. Reports good FM+, no complaints. History of 1 vaginal delivery followed by 2 C-sections. ANIL 11/12/2024 (based on 13w2d US). Transferred from Dr. Duke at [facility]. Repeat scheduled for 11/09/2024 at 12:30 PM. Plan: Arrive at 10:00 AM on day of surgery 36-week visit to include culture swab Weekly visits moving forward precautions reviewed 10/17/24 -?-?-?-?-?-?-?-?-?-?-?-?- 36w 2d 99.337 kg 108/70 at 36 weeks and 2 days gestation, presents for routine care. History of 2 prior C-sections, scheduled for repeat on 11/09/2024. Reports intermittent mild abdominal pain, no CTX/LOF/VB, good FM+. Denies ALEGRIA/VC/epig pain. FHT 155 bpm. Consent signed for BTL; patient to obtain copy from Dr. Duke' office. Plan: Bring signed BTL consent form to next vi sit Repeat scheduled for 11/09/2024 Weekly follow-up visits Call L&D if contractions persist >1 hour Routine and preeclampsia precaut ions reviewed 10/26/24 -?-?-?-?-?-?-?-?-?-?-?-?- 37w 4d 99.79 kg 112/73 44yo @37w4d, prior 2 C/S, scheduled repeat C/S 11/09 with BTL, no CTX/LOF/VB, FM+, reports back pressure, FHT 145 bpm. Plan: proceed with C/S 11/09, f/u next week, monitor for labor signs. 11/02/24 -?-?-?-?-?-?-?-?-?-?-?-?- 38w 4d 100.924 kg 127/78 @ 38w4d, hx of 2 prior C-sections, presents for final visit. Denies CTX/LOF/VB, good FM+, no ALEGRIA/VC/RUQ pain. FHT 141 bpm. Plan: Scheduled for repeat on 11/09/24 at 10:00 AM, NPO after midnight. No further office visits planned. Instructed to monitor movement and report any warning signs (pain, bleeding, leakage). Will follow up in hospital for delivery. ANIL Calculator Estimated Delivery Date Method Current WG Current Estimate 11/12/24 LMP (Certain) 39w 3d Exam General General Appearance: alert, in no apparent distress and healthy appearing Head Head exam: atraumatic Neck Neck exam: Present normal inspection and trachea midline Chest Chest inspection: Present normal inspection and symmetric chest wall rise External exam: Present normal external exam; Absent tenderness Neuro Neurological exam: Present oriented X3 Psych Psychiatric exam: Present normal affect and normal mood Office Procedures OB Clinic LOC & Office Proc's Nursing/Assessment Patient Status: Established Patient OB Clinic Nursing Assessment: Medication Reconciliation, Update PMH in EMR and Vital Signs OB Clinic Coordination of Care: Education Complex Pt/Fam, Consent,records obtained, informed consent, Results/Orders obtained and Staff clarify orders Special Needs: Heart tones Established Patient Charge Established Patient Point Assignment: 100 Established Patient Point Charge: EP Level 3 (80-115) Assessment & Plan Diagnosis / Problem List (1) Varicose veins of lower extremity: Status: Acute (2) Advanced maternal age (AMA), 40 years or greater: Status: Acute (3) Maternal care for unspecified type scar from previous delivery: Status: Acute (4) Supervision of high risk , unspecified, third trimester: Status: Acute Plan Problem List - , third trimester - History of section Assessment at 38 weeks and 4 days gestation presenting for visit. History of 2 previous sections. Repeat section scheduled for next week. heart rate 141 bpm, noted as normal. Plan - Repeat scheduled for 11/09/2024 at 10:00 AM - Patient to arrive at the hospital at 10:00 AM on the day of the procedure - NPO (nothing by mouth) after midnight before the - No further office visits scheduled; next follow-up will be at the hospital for the 1. Progress Reviewed gestational age, growth, and heart rate. Planned frequent visits (every 2 weeks until 36 weeks, then weekly). 2. Instructed patient to monitor movements and report decreases immediately. 3. Testing Counseled on routine third-trimester labs per guidelines. Discussed potential need for ultrasound or monitoring based on risk factors. 4. Preeclampsia Precaution Educated on preeclampsia signs: severe headache, vision changes, right upper quadrant pain, sudden swelling. Advised urgent reporting of symptoms and discussed blood pressure monitoring if high risk. 5. Labor Precautions Reviewed labor signs: regular contractions, pelvic pressure, back pain, bleeding, or fluid leakage. Instructed to seek immediate care for these symptoms. 6. Lifestyle and Delivery Preparation Reinforced vitamins, nutrition, and safe activity. Discussed plan, pain management, and . Advised on labor preparation (e.g., hospital bag) and expectations. 7. Psychosocial Support Assessed emotional well-being and offered resources for mental health or parenting support.
[2024-11-02 13:43] VITALS: BP 127/78; PULSE 79; RESP 18; TEMP 36.2; O2SAT 99; BMI 37.0
== END 2024-11-02 13:54 | disposition home or self-care (01) ==
LOC: HODSOBC 13:22
PROVIDERS: Supervising Provider Obstetrics & Gynecology; Visit Provider Obstetrics & Gynecology
DX: O09.523 Supervision of elderly multigravida, third trimester (principal); Z3A.38 38 weeks gestation of pregnancy; O09.293 Supervision of pregnancy with other poor reproductive or obstetric history, third trimester; O34.219 Maternal care for unspecified type scar from previous cesarean delivery; O09.893 Supervision of other high risk pregnancies, third trimester; O22.03 Varicose veins of lower extremity in pregnancy, third trimester; I83.90 Asymptomatic varicose veins of unspecified lower extremity
CPT/HCPCS: 99213; G0463

== ENCOUNTER 2024-11-09 09:52 | Inpatient (IN) | payer MEDICAID, SELFPAY ==
[2024-11-09] VITALS (54 sets, daily range): BP systolic 106–148; BP diastolic 63–87; PULSE 62–89; RESP 13–24; TEMP 36.4–36.8; O2SAT 96–99; BMI 36.6
--- NOTE | 2024-11-09 09:41 | PD.LDHP ---
Documentation for date of: 11/09/24 OB Labor/Induct. HPI History of Present Illness Chief complaint: Scheduled : 5 Para: 4 Term pregnancies: 4 pregnancies: 4 Living children: 4 History of Abortions: Spontaneous and Elective: 0 History of sections: Yes History of : No History of present illness: 44-year-old 5 para 4 at 39 weeks and 4 days, ANIL 11/12/2024 presents for scheduled repeat low-transverse section Patient has no contractions or leakage of fluid or vaginal bleeding and reports good movements Risk factors include advanced maternal age and risk of previous C-sections Please refer to office notes for labs Comments: labs include: Blood group B positive Hemoglobin 10.4 g/dL Rubella immune RPR non-reactive Hepatitis B negative HIV negative Gonorrhea and Chlamydia negative 1-hour glucose: 155 mg/dL 3-hour glucose: Fastin mg/dL 1 hour: 181 mg/dL 2 hour: 138 mg/dL 3 hour: 122 mg/dL Hemoglobin A1c: 5.3% Cystic fibrosis screening: Negative NIPT: Negative Review of Systems Review of Systems Systems Reviewed: All systems reviewed, normal except as documented Past Medical History Surgical History SURGICAL: Positive Section Meds Home Medications and Allergies Home Medications ?Medication ?Instructions ?Recorded ?Confirmed ?Type No Known Home Medications 10/10/24 10/26/24 History Allergies Allergy/AdvReac Type Severity Reaction Status Date / Time No Known Allergies Allergy Verified 11/02/24 13:52 OB Exam Constitutional Constitutional: no acute distress Routine HEENT Exam Head: Present normocephalic and atraumatic Eye: Present EOMI and PERRL ENT: Present mucous membranes moist Routine Neck Exam Neck: Present supple and trachea midline Routine Cardiovascular Exam Cardiovascular: Present RRR Routine Abdominal Exam Abdominal: Present soft and normoactive bowel sounds Detailed Labor and Delivery Exam Baseline heart rate: 135 monitor accelerations: 15x15 monitor decelerations: None Routine Extremities Exam Extremities: Present full ROM Routine Skin Exam Skin: Present intact, dry and warm Routine Neurological Exam Neurological: Present alert, oriented X3 and CN II-XII intact Routine Psychiatric Exam Psychiatric: Present normal affect and normal thought process OB Assessment & Plan Assessment and Plan (1) Varicose veins of lower extremity: Status: Acute (2) Advanced maternal age (AMA), 40 years or greater: Status: Acute (3) Supervision of high risk , unspecified, third trimester: Status: Acute (4) Maternal care for unspecified type scar from previous delivery: Status: Acute Assessment and plan: Admit to inpatient status for repeat low transverse IV access, CBC, type and screen, LR at 125, RPR, COVID-19 test GBS negative Ancef 2 g prior to surgery start Ramos catheter to drainage SCDs for DVT prophylaxis Anesthesia to preop for spinal anesthesia Scheduled for surgery.
[2024-11-09 11:29] LABS: Basophils % (Auto) 0 % (0-2.5); Eosinophils # (Auto) 0.1 Thou/mm3 (0.0-0.5); Eosinophils % (Auto) 1 % (0-10); Hematocrit 36.5 % (36.0-46.0); Hemoglobin 13.4 g/dL (12.0-16.0); Immature Granulocytes % (Auto) 0 % (0-0); Immature Granulocytes Auto 0.04 Thou/mm3 (0.00-0.00); Lymphocytes # (Auto) 1.9 Thou/mm3 (1.0-4.8); Lymphocytes % (Auto) 21 % (10-50); Mean Corpuscular HGB Conc 36.7 g/dl (31.0-37.0); Mean Corpuscular Hemoglobin 34.2 pg (25.0-35.0); Mean Corpuscular Volume 93 fL (80-100); Monocytes # (Auto) 0.5 Thou/mm3 (0.0-0.8); Monocytes % (Auto) 5 % (0-12); Neutrophils # (Auto) 6.4 Thou/mm3 (1.8-7.7); Neutrophils % (Auto) 72 % (37-80); Nucleated Red Blood Cell % 0 /100 WBC (0); Platelet Count 91 Thou/mm3 (140-440); RDW Standard Deviation 43.4 fL (36.4-46.3); Red Blood Count 3.92 Miln/mm3 (4.00-5.20); White Blood Count 8.9 Thou/mm3 (3.6-11.0)
[2024-11-09 13:27] LABS: Syphilis Nonreactive (Nonreactive)
[2024-11-09] MEDS: TERBUTALINE SULF INJ 1 MG/ML VIAL 0.25 MG SC (13:31)
[2024-11-09] MEDS: RINGERS LACTATED 1000 ML 1,000 ML 100 ML IV (13:49)
[2024-11-09] MEDS: METOCLOPRAMIDE INJ 5 MG/ML VIAL 2 ML 10 MG IVP (14:40)
[2024-11-09] MEDS: ceFAZolin/D5W 2 GM IV 2 GM/100 ML BAG IV (14:41)
[2024-11-09] MEDS: FAMOTIDINE INJ 10 MG/ML VIAL 2 ML 20 MG IV (14:41)
--- NOTE | 2024-11-09 15:55 | PD.GYNPROC ---
Operative Note - [employer] Procedure Date of procedure: 11/09/24 Procedure Performed: Repeat low-transverse section and bilateral tubal ligation Indication: 44-year-old G5, P4 at 39 weeks and 2 days with previous Desired surgical sterilization Anesthesia type: Spinal Procedure description: Informed consent was obtained and the patient was taken to the operating room. Identity was confirmed by double identifiers and she was placed on the operating table. Spinal anesthesia was administered and she was positioned in the supine position. The abdomen and perineum were prepped in the usual sterile fashion and a Ramos catheter was placed to continuous drainage. Sterile drapes were applied. The incision site was tested for adequacy of anesthesia. A Pfannenstiel skin incision was made with a scalpel and carried to the subcutaneous fat up to the rectus fascia. The rectus fascia was incised on either side of the midline and the incisions were extended bilaterally. The fascia was gently dissected off the ventral surface of the rectus muscle both superiorly and inferiorly. The rectus bellies were gently in the midline and the peritoneum was identified and entered bluntly using the surgeon's finger. The peritoneal opening was now stretched to create an adequate opening for access to the uterus. Andrez O-ring retractor was placed for adequate visualization. The anterior surface of the uterus was palpated. The bladder reflection was identified and a Yulisa Rapp low transverse uterine incision was made in the lower uterine segment taking care to avoid the bladder. Uterine entry was accomplished bluntly and the opening was stretched to create adequate room. The amniotic membranes were now ruptured and clear amniotic fluid was released. The fetus was noted to be in the vertex position. The head was gently elevated out of the maternal pelvis and single loop of nuchal cord was found around the neck. The cord was released and the rest of the shoulders and body were delivered by gentle fundal pressure. Umbilical cord was doubly clamped, divided and the was handed over to the waiting team. Cord gas samples were obtained. The placenta was delivered by gentle traction on the umbilical cord. The interior of the uterus was now thoroughly cleaned of all blood and debris and membranes. The hysterotomy angles were grasped by a pair of Allis clamps and the hysterotomy was closed using 1 Monocryl suture in 1 layer. A second layer could not be placed because of the proximity of the bladder to the hysterotomy repair Bilateral tubal ligation was now performed using the Suzie technique, starting first on the right side and then on the left side. After the repair was completed some amount of oozing was noted from the right utero ovarian veins and [id number] stitches were applied to achieve hemostasis The hysterotomy was once again inspected and hemostasis was noted to be satisfactory. The Andrez retractor was now removed. The peritoneal edges were re approximated. The rectus muscles were re approximated. The rectus fascia was now repaired using 0 Vicryl suture in a running fashion. The subcutaneous layer was now copiously irrigated using warm normal saline. All bleeding points were cauterized using the Bovie. The subcutaneous fat was closed using 3-0 Vicryl. The skin was closed using 4-0 Monocryl in a subcuticular fashion. The skin was cleaned and a sterile dressing was applied. The patient was now undraped, the abdomen and back were thoroughly cleaned and she was transferred to the recovery room in a stable and awake condition. The patient tolerated the entire procedure well. No complications were encountered. All instrument, sponge and lap counts were correct x2. Estimated blood loss (ml): 600 Complications: none Surgical staff Operation Date: 11/09/24 14:45 <No data on this case meets the specified criteria> Diagnosis Discharge Diagnosis (1) Maternal care for unspecified type scar from previous delivery: Status: Acute (2) Supervision of high risk , unspecified, third trimester: Status: Acute (3) Encounter for sterilization: Status: Acute Problem List Completed Was Problem List Reviewed/Reconciled?: Yes
--- NOTE | 2024-11-09 15:58 | PD.LDDELS ---
Data (Govea) Data : 4 Livin Abortions: Spontaneous & Theraputic: 0 Delivery Data (Govea) Labor Data ROM date: 11/09/24 Amniotic membrane rupture type: Artificial Delivery Data Onset of labor date: 11/09/24 Complete dilation date: 11/09/24 [place] delivery date: 11/09/24 Placenta delivery date: 11/09/24 Delivered by: Kris Logan Delivery nurse: [facility]ABB[facility]: SHABBIR Bonner Support person(s) at delivery: FOB Other staff at delivery: [facility] Delivery Method Delivery method: Low Transverse Anesthesia Type Anesthesia Type: Spinal Anesthesia type: Spinal Placenta Placenta delivery description: Manual Removal Cord blood sent to lab: Yes cord blood collection: Cord Blood Type Episiotomy Episiotomy description: None [place] Data (Govea) Data order: 1
[2024-11-09] MEDS: OXYTOCIN in NS 20 units 20 UNIT/1,000 ML BAG 125 UNIT IV (16:29)
[2024-11-09] MEDS: DiphenhydrAMINE INJ 50 MG/ML VIAL 25 MG IVP (18:05)
--- NOTE | 2024-11-09 18:26 | PC.NURSE ---
25mg11/09/24 1756: MD Logan called Pt. requests Benadryl for itching. Orders received for Benadryl IVP 25mg q6 PRN for itching.
[2024-11-09] MEDS: HYDROcodone/APAP 5/325 TABLET 1 TAB PO (21:39)
[2024-11-09] MEDS: PANTOPRAZOLE INJ 40 MG VIAL IVP (22:42)
[2024-11-10] MEDS: OXYTOCIN in NS 20 units 20 UNIT/1,000 ML BAG 125 UNIT IV (00:08)
[2024-11-10] MEDS: DiphenhydrAMINE INJ 50 MG/ML VIAL 25 MG IVP (00:12)
[2024-11-10] MEDS: ACETAMINOPHEN 325 MG TABLET 650 MG PO (00:12)
[2024-11-10] MEDS: SIMETHICONE 80 MG CHEW PO (04:01)
[2024-11-10] MEDS: IBUPROFEN TAB 400 MG TABLET 800 MG PO ×2 (04:01→16:48)
[2024-11-10 04:15] VITALS: BP 132/76; PULSE 71; RESP 18; TEMP 36.6; O2SAT 97
[2024-11-10 05:17] LABS: Basophils % (Auto) 0 % (0-2.5); Eosinophils % (Auto) 0 % (0-10); Hematocrit 33.9 % (36.0-46.0); Hemoglobin 12.3 g/dL (12.0-16.0); Immature Granulocytes % (Auto) 0 % (0-0); Immature Granulocytes Auto 0.04 Thou/mm3 (0.00-0.00); Lymphocytes # (Auto) 1.7 Thou/mm3 (1.0-4.8); Lymphocytes % (Auto) 13 % (10-50); Mean Corpuscular HGB Conc 36.3 g/dl (31.0-37.0); Mean Corpuscular Hemoglobin 33.8 pg (25.0-35.0); Mean Corpuscular Volume 93 fL (80-100); Monocytes # (Auto) 0.5 Thou/mm3 (0.0-0.8); Monocytes % (Auto) 4 % (0-12); Neutrophils % (Auto) 83 % (37-80); Nucleated Red Blood Cell % 0 /100 WBC (0); Platelet Count 81 Thou/mm3 (140-440); Red Blood Count 3.64 Miln/mm3 (4.00-5.20); White Blood Count 13.2 Thou/mm3 (3.6-11.0)
[2024-11-10 08:34] VITALS: BP 136/77; PULSE 70; RESP 18; TEMP 36.6; O2SAT 99
--- NOTE | 2024-11-10 08:40 | PD.LDPPPRG ---
Subjective Subjective Interval history: Delivery type: , postoperative day #1 Patient doing well this morning. No acute complaints. Ambulating, tolerating p.o. and voiding without difficulty. HTN/Pre-Eclampsia screen: No chest pain, shortness of breath, headache, visual changes, epigastric or right upper quadrant pain. Breast-feeding, lochia diminishing. Bowel: Flatus+ Exam Vital Signs Temp Pulse Resp BP Pulse Ox O2 Del Method 97.9 F 71 18 132/76 H 97 Room Air 11/10/24 04:15 11/10/24 04:15 11/10/24 04:15 11/10/24 04:15 11/10/24 04:15 11/10/24 04:15 Constitutional Constitutional: no acute distress Routine HEENT Exam Head: Present normocephalic and atraumatic Eye: Present EOMI and PERRL ENT: Present mucous membranes moist Routine Neck Exam Neck: Present supple and trachea midline Routine Respiratory Exam Respiratory: Present chest non-tender, lungs clear, normal breath sounds and no resp distress Routine Cardiovascular Exam Cardiovascular: Present RRR Routine Abdominal Exam Abdominal: Present soft and normoactive bowel sounds Routine Extremities Exam Extremities: Present full ROM Routine Skin Exam Skin: Present intact, dry and warm Routine Neurological Exam Neurological: Present alert, oriented X3 and CN II-XII intact Routine Psychiatric Exam Psychiatric: Present normal affect and normal thought process Objective Labs 11/10/24 05:05 Labs: Laboratory Results - last 24 hr 11/09/24 11/10/24 11:05 05:05 WBC 8.9 13.2 H D RBC 3.92 L 3.64 L Hgb 13.4 12.3 Hct 36.5 33.9 L MCV 93 93 MCH 34.2 33.8 MCHC 36.7 36.3 RDW Std Deviation 43.4 43.0 Plt Count 91 L 81 L Neut % (Auto) 72 83 H Lymph % (Auto) 21 13 [place] % (Auto) 5 4 Eos % (Auto) 1 0 Baso % (Auto) 0 0 Neut # (Auto) 6.4 11.0 H Lymph # (Auto) 1.9 1.7 [place] # (Auto) 0.5 0.5 Eos # (Auto) 0.1 0.0 Baso # (Auto) 0.0 0.0 Immature Gran # (Auto) 0.04 H 0.04 H Absolute Nucleated RBC 0.00 0.00 Immature Gran % 0 0 Nucleated RBC % 0 0 Syphilis Serology Nonreactive Blood Type B Positive Antibody Screen NEGATIVE Crossmatch See Detail Blood Bank Wristband ID Yes Assessment & Plan Problem List (1) Maternal care for unspecified type scar from previous delivery: Status: Acute Assessment and plan: 1. Continue routine /post-op care 2. Labs reviewed, cbc appropriate 3. Remove dressing/Ramos 4. Encourage to ambulate, shower 5. Encourage PO intake, breast feeding (2) Supervision of high risk , unspecified, third trimester: Status: Acute (3) Encounter for sterilization: Status: Acute Time Spent With Patient Time: Total time spent is greater than 50% in coordination of care (as documented) at patient's floor/unit and/or counseling patient:
[2024-11-10] MEDS: HYDROcodone/APAP 5/325 TABLET 1 TAB PO ×2 (10:26→22:33)
[2024-11-10 12:00] VITALS: BP 121/74; PULSE 73; RESP 18; TEMP 36.5; O2SAT 98
[2024-11-10 16:00] VITALS: BP 132/71; PULSE 71; RESP 18; TEMP 36.7; O2SAT 98
[2024-11-10 20:00] VITALS: BP 122/79; PULSE 74; RESP 16; TEMP 36.5; O2SAT 98
[2024-11-11] MEDS: IBUPROFEN TAB 400 MG TABLET 800 MG PO (03:24)
[2024-11-11 03:52] VITALS: BP 118/67; PULSE 69; RESP 16; TEMP 36.8; O2SAT 98
[2024-11-11 08:00] VITALS: BP 117/77; PULSE 71; RESP 18; TEMP 36.6; O2SAT 98
[2024-11-11] MEDS: HYDROcodone/APAP 5/325 TABLET 2 TAB PO (08:26)
--- NOTE | 2024-11-11 10:43 | PC.SS ---
CHAPERONEMeggan, met with patient [id number] to do initial assessment due to patient scoring 12 on Post- Depression Screening. MEDICAL HISTORIAN introduced herself, role in the agency, reason for visit, and discussed limits of confidentiality. Patient appeared alert and oriented to self, time, place, and situation. Patient appears stated age. Patient made good eye contact. Patient?s attitude appeared pleasant and cooperative. Patient?s behavior appeared ordinary. Patient?s mood appears ordinary. No signs of delusions or hallucinations. This is 44-year-old, monolingual, single, female who presented to the hospital to deliver her daughter, Beti. Patient was able to verify her address ([address] [place] [id number]), phone number and emergency contacts ([employer] (phone: [phone]). Patient resides at home with her significant other, Richmond Okeefe (phone: [phone]). She reports being independent with all her ADLs, no DME use. Patient reports that prior to admission, she was on disability. Patient currently receives WIC, and disability. Patient denies any history or current domestic violence. Patient denied any substance use. Patient reported feeling sad at times. However, she currently denies any existing or history of mental health illnesses. She denies receiving any outpatient mental health services. Patient reported that her answers for the PPD were not accurate. She reported that she was not paying that much attention due to never answering questionnaires on her own. Patient denies any history of suicide attempts or being placed on a 5150 hold. Patient denied any HI, SI. Patient reported having most of the the equipment for the baby. SW provided emotional support. Patient reported that her discharge plan is to return home with significant other. No social needs at this time.
--- NOTE | 2024-11-11 13:21 | ESDS_ITS ---
DS: Providers Provider Date of admission: 11/09/24 09:52 Primary care physician: Taras Yao MD Admitting Provider: Kris Logan MD Attending Provider on Admission: Kris Logan MD Consults: 11/09/24 10:08 Referral Routine Comment: Attending Provider on DC: Tawana Garcia MD Discharging Provider: Tawana Garcia MD DS: Diagnosis Discharge Diagnosis (1) Maternal care for unspecified type scar from previous delivery: Status: Acute (2) Delivery by section: Status: Acute (3) Supervision of high risk , unspecified, third trimester: Status: Acute (4) Advanced maternal age (AMA), 40 years or greater: Status: Acute (5) Encounter for sterilization: Status: Acute (6) Varicose veins of lower extremity: Status: Acute Problem List Completed Was Problem List Reviewed/Reconciled?: Yes Summary/Hosp Course Brief History: 44-year-old 5 para 4 at 39 weeks and 4 days, ANIL 11/12/2024 presents for scheduled repeat low-transverse section Patient has no contractions or leakage of fluid or vaginal bleeding and reports good movements Risk factors include advanced maternal age and risk of previous C-sections Please refer to office notes for labs Radhika underwent uncomplicated repeat section with bilateral salpingectomy, delivering on 11/09/24. She has had an uncomplicated post- operative course, meeting all milestones and feels ready for discharge home. She is ambulating without lightheadedness, tolerating regular diet no n/v, spontaneously voiding without issue. She has no chest pain or shortness of breath. No fevers or chills. Pain well controlled. Vitals normal, benign exam. Hemodynamically stable with no evidence of infection. Post-op Hgb 12.3. Peripartum Data Delivery Method: Low Transverse Episiotomy Description: None Procedures: Procedures Operation Date: 11/09/24 14:45 Actual Procedure Side Surgeon p w/tubal OB Kris Logan MD Status at Discharge Functional status at discharge: independent ambulation Overall status at discharge: patient is back to baseline Time Spent with Patient Time attestation: Total time spent providing and/or coordinating discharge services: Exam Vital Signs Temp Pulse Resp BP Pulse Ox O2 Del Method 97.9 F 71 18 117/77 98 Room Air 11/11/24 08:00 11/11/24 08:00 11/11/24 08:00 11/11/24 08:00 11/11/24 08:00 11/11/24 08:00 Narrative Exam General: well developed, well nourished, no acute distress, conversant Cardiac: normal heart rate Lungs: breathing without distress Abdomen: soft, post-gravid, non-tender, no rebound or guarding, pfannenstiel incision covered by dry/clean/intact prineo bandage. Incision well reapproximated. No erythema, drainage or induration. Fundus firm at u-2cm. Extremities: no pain with palpation of calves, trace edema of BLE Discharge Plan Plan Patient Disposition: HOME (Self Care) Patient condition on transfer: Stable Prescriptions/Referrals Prescriptions/Med Rec: New hydrocodone-acetaminophen 5-325 mg tablet 1 tab PO Q6H MDD 4 PRN (Reason: pain) 7 Days Qty: 28 0RF docusate sodium [Stool Softener] 100 mg capsule 100 mg PO QDAY 30 Days Qty: 30 0RF ibuprofen 600 mg tablet 600 mg PO Q6H MDD 4 PRN (Reason: fever or pain) 10 Days Qty: 40 0RF Referrals: Taras Yao MD [Primary Care Provider] - Kris Logan MD [Physician] - Patient/Caregiver Discharge Instructions Discharge Activity: activity as tolerated and other Other Discharge Activity Instructions:: vaginal rest and no heavy lifting more than 10 pounds for 6 weeks[address] while taking narcotic. keep incision clean and dry, do not submerge Other Discharge Diet Instructions: regular Education Materials: C Section Dc Print Language: Kosovan Activity Restrictions/Additional Instructions: follow up with Dr. Logan in office in 1 week for bandage removal, call for appointment Stand Alone Forms: Jessica Award Info., Patient Portal Info Letter, DC from Surgery Discharge Order Discharge Orders: Discharge (Routine); Ordered 11/11/24 Ordered By: Tawana Garcia Planned Discharge Date 11/11/24 (1) Maternal care for unspecified type scar from previous delivery Qualifiers: Previous scar type: low transverse Qualified Code(s): O34.211 - Maternal care for low transverse scar from previous delivery
== END 2024-11-11 14:06 | disposition home or self-care (01) | DRG 539 ==
LOC: S4SX 14:15 → S4NX 14:57
PROVIDERS: Admitting Provider Obstetrics & Gynecology; PCP Family Medicine; Visit Provider Obstetrics & Gynecology
PROC: 0UL70ZZ Occlusion of Bilateral Fallopian Tubes, Open Approach (ICD-10-PCS; CPT 59514; principal; 2024-11-09 14:30)
DX: O34.211 Maternal care for low transverse scar from previous cesarean delivery (principal); Z3A.39 39 weeks gestation of pregnancy; Z37.0 Single live birth; O69.81X0 Labor and delivery complicated by cord around neck, without compression, not applicable or unspecified; O87.4 Varicose veins of lower extremity in the puerperium; I83.90 Asymptomatic varicose veins of unspecified lower extremity; Z30.2 Encounter for sterilization
CPT/HCPCS: 36415; 85025; 86780; 86850; 86900; 86901; 86923; A4649; J0689; J1200; J2274; J2371; J2470; J2590; J2765; J3010; J3105; J3490; J7120; A9270; J2270

== ENCOUNTER 2025-04-12 10:45 | Day surgery (SDC) | payer MEDICAID, SELFPAY ==
[2025-04-11 08:59] VITALS: BMI 34.7
[2025-04-11 09:39] LABS: Basophils # (Auto) 0.0 Thou/mm3 (0.0-0.2); Basophils % (Auto) 1 % (0-2.5); Eosinophils # (Auto) 0.2 Thou/mm3 (0.0-0.5); Eosinophils % (Auto) 3 % (0-10); Hematocrit 39.8 % (36.0-46.0); Hemoglobin 13.7 g/dL (12.0-16.0); Immature Granulocytes Auto 0.02 Thou/mm3 (0.00-0.00); Lymphocytes # (Auto) 2.2 Thou/mm3 (1.0-4.8); Lymphocytes % (Auto) 35 % (10-50); Mean Corpuscular HGB Conc 34.4 g/dl (31.0-37.0); Mean Corpuscular Hemoglobin 31.5 pg (25.0-35.0); Mean Corpuscular Volume 92 fL (80-100); Monocytes # (Auto) 0.4 Thou/mm3 (0.0-0.8); Monocytes % (Auto) 7 % (0-12); Neutrophils # (Auto) 3.5 Thou/mm3 (1.8-7.7); Neutrophils % (Auto) 54 % (37-80); Nucleated Red Blood Cell # 0.00 Thou/mm3 (0.00-0.00); Nucleated Red Blood Cell % 0 /100 WBC (0); Platelet Count 162 Thou/mm3 (140-440); RDW Standard Deviation 40.6 fL (36.4-46.3); Red Blood Count 4.35 Miln/mm3 (4.00-5.20); White Blood Count 6.4 Thou/mm3 (3.6-11.0)
[2025-04-11 09:53] LABS: INR 1.0 (0.9-1.3); Partial Thromboplastin Time 30.5 Seconds (22.0-36.0); Prothrombin Time 11.0 Seconds (9.0-12.2)
[2025-04-11 09:58] LABS: Anion Gap 9 (7-16); BUN/Creatinine Ratio 18 Ratio (12-20); Blood Urea Nitrogen 14 mg/dL (9-23); Calcium 9.2 mg/dL (8.3-10.6); Carbon Dioxide 25.6 mMol/L (20.0-31.0); Chloride 106 mMol/L (98-107); Creatinine (Component) 0.8 mg/dL (0.6-1.3); Estimated Creatinine Clearance 101.0 mL/min (>60); Glucose 114 mg/dL (74-106); Osmolality,Calculated 282 (275-295); Potassium 4.1 mMol/L (3.4-5.1); Sodium 141 mMol/L (136-145); eGFR > 60 See Note
[2025-04-12] VITALS (8 sets, daily range): BP systolic 112–136; BP diastolic 51–91; PULSE 68–91; RESP 12–20; TEMP 36.2–36.6; O2SAT 98–100; BMI 34.6
--- NOTE | 2025-04-12 13:47 | PD.SUROPNT ---
Date of Procedure 04/12/25 Pre Op Diagnosis Symptomatic varicose veins in both lower extremities Post Op Diagnosis Same as pre-op diagnosis Procedure Varicose vein excisions in both lower extremities using 36 incisions on the left and 29 incisions on the right Findings All marked varicose veins were successfully removed or disrupted Procedure Description With the patient standing in the preop area all varicose veins to be removed were carefully marked with a sharpie pen. The patient was then brought to the operating room and laryngeal mask anesthesia was established. A timeout was performed. The operation was performed by making a small skin alice in all the marked areas with a #11 blade then bluntly enlarging these incisions and grasping the varicose veins and sequentially excising or disrupting them. After all veins were successfully removed or disrupted hemostasis was obtained then the leg was cleaned, dried and Steri-Strips were applied to the incisions. The leg was then sterilely wrapped with gauze Curlex and a firm Manuel wrap. The patient woke up from anesthesia and was moved to recovery in stable condition Anesthesia other (Laryngeal mask anesthesia) Implants Implants comments: None Pathology / specimen Other (Bilateral lower extremity varicose veins) Estimated Blood Loss 75 Condition Stable Disposition PACU Surgeon Gino Durham MD Surgical Staff Operation Date: 04/12/25 13:15 Case Staff Anesthesiologist: Martínez Whatley RN First Assistant: Asmita Uriarte
--- NOTE | 2025-04-12 14:16 | SUR.PHASEI ---
1416: Pt. wakes to name then drifts back to sleep, vitals stable, breathing unlabored, no complaint of pain or nausea, dressing to bilateral legs CDI, no active bleed noted, bilateral dorsalis pedis pulses strong and regular, cap refill to bilateral feet less than 3 seconds, pt. able to move bilateral legs, report received from Flash SHEA and MD Whatley.
[2025-04-12] MEDS: fentaNYL CIT INJ 50 mCg/ML AMP 2ML 25 MCG IV (14:48)
--- NOTE | 2025-04-12 15:10 | SUR.PHASEII ---
1510: Pt. AAOx4, vitals stable, breathing unlabored, no complaint of pain or nausea, dressing to bilateral legs CDI, no active bleed noted, had pt. march in place for 2 minutes while assessing for an active bleed, no active bleed noted, pt. tolerated sips of coffee well, pt. ambulated to wheelchair with steady gait and no assist, no complications. Gave discharge instructions to the pt. and her ride using a information technology director, both verbalized understanding and had no further questions. Pt. left with all personal belongings.
== END 2025-04-12 15:10 | disposition home or self-care (01) ==
PROVIDERS: PCP Physician Assistant; Referring Provider Surgery Vascular Surgery; Visit Provider Surgery Vascular Surgery
PROC: (CPT 37785; principal; 2025-04-12 13:00)
DX: I83.813 Varicose veins of bilateral lower extremities with pain (principal)
CPT/HCPCS: 37766; 36415; 80048; 84703; 85025; 85610; 85730; A4649; J0131; J0330; J0690; J0694; J1100; J1885; J2250; J2405; J2704; J3010; J3490